=== PATIENT | male | born 1990 | race Caucasian/White ===

== ENCOUNTER 2021-05-21 05:40 | Outpatient (RCR) | payer BC | END 2021-08-19 | disposition home or self-care (01) | LOC: PREOP 05:40 | PROVIDERS: ATTEND Internal Medicine | DX: Z01.818 Encounter for other preprocedural examination (principal) ==

== ENCOUNTER → 2022-02-19 | Outpatient (CLI) | payer BC ==
--- NOTE | 2022-02-19 15:59 | Diagnostic Imaging Report ---
INDICATION: Papillary carcinoma. COMPARISON: No prior studies are available for comparison. FINDINGS: The right lobe of the thyroid measures 5.0 x 1.2 x 1.3 cm and the left lobe measures 5.8 x 2.1 x 2.0 cm. The isthmus is 4 mm in thickness. There is a solid mass in the lower pole left lobe of the thyroid measuring 2.1 x 1.9 x 1.9 cm. This does show parenchymal heterogeneity. There appear to be numerous echogenic foci present consistent with calcifications. This most likely represents patient's known papillary malignancy. No other masses are seen. No enlarged right or left neck lymph nodes are identified. No fluid collections are seen. 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 No cervical lymphadenopathy is detected. Dictated by: Dictated on workstation # [id number]
== END ==
LOC: RAD 13:45
PROVIDERS: ATTEND Otolaryngology
DX: C73 Malignant neoplasm of thyroid gland (principal)
CPT/HCPCS: 76536